=== PATIENT | male | born 1950 | race Caucasian/White ===

== ENCOUNTER 2018-04-13 19:52 | Emergency (ER) | payer OTHER, MEDICARE ==
[2018-04-13] MEDS ORDERED: Levofloxacin TAB* 250 MG PO ONE (20:37)
[2018-04-13] MEDS ORDERED: oxyCODONE/Acetamin 5/325 MG* TAB PO ONE (20:49)
[2018-04-13 21:01] VITALS: BP 133/74
--- NOTE | 2018-04-13 21:37 | ED ---
Thai Winter Angela, scribed for Cade Oliver MD on 04/13/18 at 2036 . Skin Complaint - HPI Summary HPI Summary: This pt is a 67 y/o male [place] [facility] [place] on buttocks for the past 4 days. Pt reports he has had this same abscess 9 years ago and again 2 years ago. He notes this new abscess began 4 days ago and is described as red, raised, and very painful. He notes he is unable to sit and hardly walk secondary to pain. Denies drainage from abscess. Denies fever, chills. PMHx includes thyroid, diabetes, high cholesterol, HTN. Pt is not on Insulin. Denies bowel disease or Crohn's disease. He is a former smoker. - History of Current Complaint Chief Complaint: EDRashSkinAbscess Stated Complaint: ABSCESS Hx Obtained From: Patient Onset/Duration: Started Days Ago, Still Present Skin Exposure Onset/Duration: Days Ago Timing: Lasting Days Current Severity: Moderate Pain Intensity: 6 Pain Scale Used: 0-10 Numeric Skin Location: Other: - buttocks Character: Pain, Redness, Raised Aggravating Symptom(s): Nothing Alleviating Symptom(s): Nothing Associated Signs & Symptoms: Negative - Allergy/Home Medications Allergies/Adverse Reactions: Allergies Allergy/AdvReac Type Severity Reaction Status Date / Time No Known Allergies Allergy Verified 04/13/18 20:08 Home Medications: Home Medications Levothyroxine TAB* 150 mg PO DAILY 04/13/18 [History Confirmed 04/13/18] Lisinopril/HCTZ 20/12.5(NF) 1 tab PO DAILY 04/13/18 [History Confirmed 04/13/18] Pravastatin Sodium 40 mg PO DAILY 04/13/18 [History Confirmed 04/13/18] metFORMIN* 850 mg PO TID 04/13/18 [History Confirmed 04/13/18] PMH/Surg Hx/FS Hx/Imm Hx Endocrine/Hematology History: Reports: Hx Diabetes Cardiovascular History: Reports: Hx Hypertension, Other Cardiovascular Problems/ Disorders - high cholesterol GI History: Denies: Hx Crohn's Disease, Hx Irritable Bowel Infectious Disease History: No Infectious Disease History: Denies: Traveled Outside the [place] in Last 30 Days - Family History Known Family History: Negative: Renal Disease - Social History Alcohol Use: None Substance Use Type: Reports: None Smoking Status (MU): Former Smoker Review of Systems Negative: Fever, Chills ENT: Negative Cardiovascular: Negative Respiratory: Negative Gastrointestinal: Negative Skin: Other - abscess on buttocks All Other Systems Reviewed And Are Negative: Yes Physical Exam - Summary Physical Exam Summary: Appearance: Well appearing, no pain distress Skin: warm, dry. Pt has a perianal abscess. Area is about 2.5 x 2 cm of fluctuance. I ruptured a little pustule. Head/face: normal Eyes: EOMI, KIRA ENT: normal Neck: supple, non-tender Respiratory: CTA, breath sounds present Cardiovascular: RRR, pulses symmetrical Abdomen: non-tender, soft Bowel: present Musculoskeletal: normal, strength/ROM intact Neuro: normal, sensory motor intact, A&Ox3 Triage Information Reviewed: Yes Vital Signs On Initial Exam: Initial Vitals Temp Pulse Resp BP Pulse Ox 98.6 F 92 16 140/83 96 04/13/18 20:04 04/13/18 20:04 04/13/18 20:04 04/13/18 20:04 04/13/18 20:04 Vital Signs Reviewed: Yes Procedures - Incision and Drainage Buttocks Site: perianal abscess. Anesthesia: Lidocaine - 1% - used 5 CC Instrument(s): Scalpel - 11 blade scalpel: drained a lot of pus and sent culture to the lab. Pt had significant relief afterwards. Packing: Gauze - iodoform Diagnostics - Vital Signs Vital Signs Temp Pulse Resp BP Pulse Ox 04/13/18 20:04 98.6 F 92 16 140/83 96 - Laboratory Lab Statement: Any lab studies that have been ordered have been reviewed, and results considered in the medical decision making process. Re-Evaluation - Re-Evaluation First Eval Re-Evaluation Time: 20:51 Change: Improved Comment: Performed I&D of perianal abscess. Abscess drained a lot of pus and sent culture to the lab. He had significantly relief afterwards. Course/Dx - Course Course Of Treatment: Patient expressed great relief after incision and drainage of perianal abscess. He was given oral Levaquin here. This will not be continued given his metformin. Instead he'll be changed to oral Bactrim. A culture was obtained but this is likely polymicrobial. He will follow up with the surgeons in the office for wound recheck and further plan. - Diagnoses Provider Diagnoses: Perianal abscess Discharge - Sign-Out/Discharge Documenting (check all that apply): Discharge/Admit/Transfer - Discharge Plan Condition: Improved Disposition: HOME Prescriptions: Lidocaine 2% JELLY* 1 applic TOPICAL QID PRN #1 tube PRN Reason: rectal pain Sulfamethox/Trimethoprim DS* [Bactrim DS 800/160 TAB*] 2 tab PO BID #28 tab traMADol TAB* [Ultram*] 50 mg PO Q6HR PRN #6 tab MDD 4 PRN Reason: more severe pain Patient Education Materials: Anorectal Abscess and Anal Fistula (ED), Abscess Incision and Drainage (DC) Referrals: Sebastian Ge MD [Medical Doctor] - Additional Instructions: Keep area clean and dry. Sitz baths as needed. Call to follow-up on with the surgeon. Return if worse, new symptoms or other concerns. - Billing Disposition and Condition Condition: IMPROVED Disposition: Home The documentation as recorded by the Thai hutchins Angela accurately reflects the service I personally performed and the decisions made by , Cade Oliver MD.
== END 2018-04-13 20:59 | disposition home or self-care (01) ==
LOC: ED 19:52
DX: K61.0 Anal abscess (principal); E07.9 Disorder of thyroid, unspecified; E11.9 Type 2 diabetes mellitus without complications; E78.00 Pure hypercholesterolemia, unspecified; I10 Essential (primary) hypertension; Z87.891 Personal history of nicotine dependence; Z79.84 Long term (current) use of oral hypoglycemic drugs
CPT/HCPCS: 10060; 87070; 87077; 87205; 87640; 87641; 99282; A9270-GY

== ENCOUNTER 2019-09-11 19:25 | Emergency (ER) | payer BC ==
[2019-09-11] MEDS ORDERED: Lidocaine 1% MPF ** 5 ML VIAL INJ ONE (19:45)
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
[2019-09-11 20:53] VITALS: BP 131/87
== END 2019-09-11 21:00 | disposition home or self-care (01) ==
LOC: ED 19:25
DX: S61.411A Laceration without foreign body of right hand, initial encounter (principal); V47.5XXA Car driver injured in collision with fixed or stationary object in traffic accident, initial encounter; Y92.410 Unspecified street and highway as the place of occurrence of the external cause; E11.9 Type 2 diabetes mellitus without complications; I10 Essential (primary) hypertension; E78.00 Pure hypercholesterolemia, unspecified; Z87.891 Personal history of nicotine dependence
CPT/HCPCS: 12002; 99282